=== PATIENT | male | born 1990 | race Native Hawaiian/Other Pacific Islander ===

== ENCOUNTER 2019-12-25 09:44 | Emergency (ER) | payer OTHER ==
[~2019-12-25] VITALS: Ht 167.6 cm; Wt 59.0 kg
[~2019-12-25 09:44] MED LIST: DIVA500T2 OR
[2019-12-25 10:20] VITALS: TEMP 97.8
[2019-12-25 10:45] LABS: PLATELET COUNT 273 K/uL (142-355)
[2019-12-25 11:20] LABS: SODIUM 139 mmol/L (136-145)
[2019-12-25 13:28] VITALS: BP 126/72
== END 2019-12-25 13:28 | disposition home or self-care (01) ==
LOC: ED 09:44
PROVIDERS: Family Medicine
DX: F19.10 Other psychoactive substance abuse, uncomplicated (principal); R55 Syncope and collapse
CPT/HCPCS: 80053; 80164; 80307; 80320; 80329; 81000; 82962; 84484; 85027; 87502; 93005; 96374; 96375; 99284; J2310; J2405

== ENCOUNTER 2020-12-19 22:53 | Emergency (ER) | payer BC ==
[~2020-12-19] VITALS: Ht 167.6 cm; Wt 68.0 kg
[2020-12-19 23:55] VITALS: BP 134/98; TEMP 98.5
== END 2020-12-19 23:55 | disposition home or self-care (01) ==
LOC: ED 22:53
DX: S30.861A Insect bite (nonvenomous) of abdominal wall, initial encounter (principal); W57.XXXA Bitten or stung by nonvenomous insect and other nonvenomous arthropods, initial encounter; Y92.89 Other specified places as the place of occurrence of the external cause
CPT/HCPCS: 90471; 99283

== ENCOUNTER 2022-11-12 18:20 | Emergency (ER) | payer OTHER ==
[~2022-11-12] VITALS: Ht 160 cm; Wt 65.3 kg
[2022-11-12 18:31] VITALS: BP 128/80; TEMP 97.9
== END 2022-11-12 20:20 | disposition home or self-care (01) ==
LOC: ED 18:20
DX: N20.0 Calculus of kidney (principal)
CPT/HCPCS: 81000; 96372; 99282; J1885